=== PATIENT | female | born 1955 | race African-American/Black ===

== ENCOUNTER 2018-06-19 09:40 | Outpatient (CLI) | payer MEDICARE ==
--- NOTE | 2018-06-19 13:06 | ULT ---
LEFT LOWER EXTREMITY VENOUS ULTRASOUND: HISTORY: Left leg swelling x 2 months. COMPARISON: None. TECHNIQUE: Carpenter scale, color flow, Doppler imaging with spectral waveform analysis is performed of the left lowe r extremity venous system. FINDINGS: There is compressibility, presence of flow, and augmentation in the common femoral vein, femoral vein , and popliteal vein. There is flow in the greater saphenous vein, profunda vein, and posterior tibi al vein. IMPRESSION: No evidence of thrombus in the left lower extremity deep venous system. POS: [facility]
== END 2018-06-19 09:41 | disposition home or self-care (01) ==
LOC: ULT 09:40
PROVIDERS: ATTEND Family Medicine
DX: M79.662 Pain in left lower leg (principal); M79.89 Other specified soft tissue disorders